=== PATIENT | male | born 1980 | race Caucasian/White ===

== ENCOUNTER 2024-01-12 08:10 | Outpatient (CLI) | payer SELFPAY ==
--- OUTSIDE RECORDS SUMMARY | 2024-01-12 08:15 | XMS_ITS | Clinical Summary ---
Author Organization [facility] Address [place], [place] [address] Care Team Providers Care News Analyst Name Role Phone Davion Brown MD Primary Care Provider [phone] Allergies Active Allergy Reactions Criticality Noted Date Comments Unlisted Allergen (Include Detail In Comments) Rash,Vomiting 10/17/2012 Poultry meats, feathers. Also fall allergies. Medications Medication Sig Dispensed Refills Start Date End Date Status aspirin 81 mg tablet Take 81 mg by mouth once daily with a meal. Active albuterol HFA (PRO-AIR,VENTOLIN,AK OVENTIL) 90 mcg/actuation inhaler Inhale 2 Puffs by mouth every 4 hours while awake. 1 Inhaler 0 01/07/2014 Active buPROPion (WELLBUTRIN SR) 200 mg Sustained-Release tablet Take 1 tablet by mouth 2 times daily. 0 02/23/2016 Active GLUCAGON EMERGENCY KIT, HUMAN, 1 mg kit 1 mg each time if needed. 07/20/2016 Active atorvastatin (LIPITOR) 80 mg tablet Take 80 mg by mouth once daily. 08/02/2017 Active omeprazole (PRILOSEC) 40 mg Delayed-Release capsule Take 40 mg by mouth once daily before a meal. 09/04/2017 Active insulin lispro (HUMALOG KWIKPEN INSULIN) 100 unit/mL inpn pen Inject 0-40 Units subcutaneous 3 times daily before meals. 2.5U/15g with meals, 2.5U per 50 over 150 Active metoclopramide HCl (REGLAN) 10 mg tablet Take 10 mg by mouth 4 times daily before meals and at bedtime. Active calcium carbonate CHEWABLE (TUMS E-X) 750 mg chewable tablet Take 1,500 mg by mouth 2 times daily if needed for Heartburn. Active methadone (DOLOPHINE) 10 mg tablet Take 120 mg by mouth once daily Active insulin degludec (TRESIBA) 200 unit/mL (3 mL) subcutaneous pen Inject 40 Units subcutaneous every morning. Active triamcinolone (ARISTOCORT; KENALOG) 0.1 % cream Apply topically to affected area(s) 2 times daily if needed for Other (Specify). Apply to hands and feet Active Magnesium Oxide 500 mg tab Take 500 mg by mouth once daily. Active ondansetron (ZOFRAN ODT) 4 mg disintegrating tabletIndications:Vo miting, intractability of vomiting not specified, presence of nausea not specified, unspecified vomiting type Place 2 tablets on the tongue every 8 hours if needed for Nausea/Vomiting. 6 tablet 01/01/2019 Active Active Problems Problem Noted Date Diagnosed Date Chest pain 11/14/2018 Gingivitis 11/14/2018 Hyperglycemia due to type 1 diabetes mellitus Diabetic ketoacidosis withou t coma associated with type 1 diabetes mellitus 09/23/2016 Opioid type dependence, continuous use 6 Non-traumatic rhabdomyolysis 12/27/2015 Acute renal failure due to rhabdomyolysis 2015 Diabetic ketoacidosis withou t coma associated with type 1 diabetes mellitus 12/26/2015 Cigarette nicotine dependence with withdrawal Anxiety 12/26/2015 Total bilirubin, elevated 12/26/2015 JULIO (acute kidney injury) 08/03/2015 Asthma exacerbation 08/02/2015 Uncomplicated asthma 01/22/2014 Acute hyponatremia 10/17/2012 Cough 06/03/2012 Diabetic hyperosmolar non-ketotic state 06/03/19 13 Diabetes type 1, uncontrolled 06/02/2012 Severe dehydration 06/02/2012 Acute hyperkalemia 06/02/2012 Diabetic neuropathy 06/02/2012 Resolved Problems Problem Noted Date Diagnosed Date Resolved Date Acute hyponatremia 12/27/2015 6 Acute hyponatremia 12/21/2015 6 Acute kidney injury 06/02/2012 12/21/19 16 Cigarette nicotine dependence with withdrawal 06/03/19 13 12/27/2015 Immunizations Name Administration Dates Next Due Influenza, High-dose Inactivated 12/06/2013 Influenza, IIV3 (Age >=3 years) 01/01/2018,12/29 Influenza, IIV4 12/18/2015 MMR 12/03/1991 Pneumococcal Poly,23-Valent (Pneumovax) 12/18/19 11,01/23/2010,12/22/2009 Td, Preservative Free (age >= 7 Years) 2 Tdap 03/01/2016 Family History Medical History Relation Name Comments Alcohol/Drug Father Heart Disease Father Stroke Father Stroke Mother Brain Aneurysm at age 60 Y Other Paternal Aunt Lupus, as repo rted by pt Stroke Paternal Grandfather Brain a neurysm Relation Name Status Comments Father Alive Mother Paternal Aunt Paternal Grandfather Social History Tobacco Use Types Packs/Day Years Used Date Smoking Tobacco: Former Cigarettes 1 6.5 S tarted: 07/22/2017 Smokeless Tobacco: Never Tobacco Cessation:Counseling Given: No Comments:Stopped 04/04/19 Alcohol Use Standard Drinks/Week Comments No 0 (1 standard drink = 0.6 oz pur e alcohol) rare Sex and Gender Information Value Date Recorded Sex Assigned at Not on file Gender Identity Not on file Sexual Orientation Not on file Obstetrics History Last Filed Vital Signs Vital Sign Reading Time Taken Comments Blood Pressure 144/84 04/19/2019 10:04 AM 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 OPERATOR Pulse 116 04/19/2019 10:04 AM VACUUM EXTRACTOR OPERATOR Temperature 37.1 ??C (98.7 ??F) 04/19/2019 10:[address] Respiratory Rate 18 04/19/2019 10:04 AM VACUUM EXTRACTOR OPERATOR Oxygen Saturation 97% 04/19/2019 10:04 AM VACUUM EXTRACTOR OPERATOR Inhaled Oxygen Concentration - - Weight 115.7 kg (255 lb) 04/19/2019 10:04 AM VACUUM EXTRACTOR OPERATOR Height 193 cm (6' 4) 04/10/2019 1:22 AM VACUUM EXTRACTOR OPERATOR Body Mass Index 31.04 04/10/2019 1:22 AM VACUUM EXTRACTOR OPERATOR Plan of Treatment Health Maintenance Due Date Last Done Comments Depression screening for age 12+ 1991 HIV for age 15-65 1994 Hepatitis C screening for age 18-79 1997 Lipids for age 35-44 2014 BMI (ht and wt on same day) for age 18+ 09/23/2017 09/23/2016, 07/30/2016, 07/29/2016, Additional history exists COVID-19 vaccine series ( season) 2023 Influenza for age 9-49 12/04/2023 8, 12/18/2015, 12/30/2011 Tetanus booster 03/01/2026 03/01/2016, 03/17/2012 Pneumococcal series for age 6-64 Aged Out 12/17/2010, 01/23/2010, 12/22/2009 No longer eligible based on patient's age to complete this topic Tdap Completed 03/01/2016 Advance Directives * Full Code (Latest Code Status on File) Date Activated Date Inactivated Comments 11/13/2018 11:05 PM 11/15/2018 3:45 PM * Full Code Date Activated Date Inactivated Comments 05/08/2018 11:28 PM 05/09/2018 5:19 PM * Full Code Date Activated Date Inactivated Comments 05/08/2018 11:28 PM 05/08/2018 11:28 PM Question Answer Comments Code Status Discussion: Not Discussed * Full Code Date Activated Date Inactivated Comments 02/17/2018 8:53 AM 02/18/2018 3:15 PM Question Answer Comments Code Status Discussion: Per Existing Order * Full Code Date Activated Date Inactivated Comments 09/28/2017 8:52 PM 09/29/2017 6:32 PM Question Answer Comments Code Status Discussion: Per Existing Order Care Teams News Analyst Relationship Specialty Start Date End Date Davion Brown MD PCP - General Family Practice 10/17/12
== END 2024-01-12 08:11 | disposition home or self-care (01) ==
PROVIDERS: PCP Family Medicine; Visit Provider Family Medicine
DX: E10.65 Type 1 diabetes mellitus with hyperglycemia (principal); E78.5 Hyperlipidemia, unspecified; Z79.4 Long term (current) use of insulin
CPT/HCPCS: 80053; 80061; 82043; 82570